=== PATIENT | male | born 1945 | race Caucasian/White ===

== ENCOUNTER 2016-12-18 20:05 | Emergency (ER) | payer MEDICARE ==
[~2016-12-18] VITALS: Ht 172.7 cm; Wt 120.0 kg
[2016-12-18 20:07] VITALS: BP 165/79; PULSE 75; RESP 16; TEMP 97.4; O2SAT 96
[2016-12-18] MEDS ORDERED: APIX5TAB PO (20:40)
[2016-12-18] MEDS ORDERED: ROSU10 PO (20:40)
[2016-12-18] MEDS ORDERED: PANT40TA3 PO (20:40)
[2016-12-18] MEDS ORDERED: LISI-515 PO (20:40)
[2016-12-18] MEDS ORDERED: ISOS20TA PO (20:40)
[2016-12-18] MEDS ORDERED: SPIR25TA PO (20:40)
--- NOTE | 2016-12-18 21:06 | PD ---
HPI Chief Complaint: ENT Complaint Time Seen by Provider: 21:02 Travel History International Travel<30 days: No Contact w/Intl Traveler<30days: No Traveled to known affect area: No History of Present Illness HPI 71-year-old white male presents to emergency department with complains of left ear pain. He states that he is [place] noticeable decreased hearing on the left ear, crackling and popping. He states that he has had pain in the ear itself. Some pain into left jaw and to his teeth as well. Patient 2 weeks ago had a skin cancer removed from the left side of his neck just behind his ear. He states that it seemed to be soon after this that he developed his symptoms. He is a been present now for one-1.5 weeks. He has had no cold symptoms. No runny nose , cough or congestion. No sore throat. He denies any ocular changes. No sensory changes on his tongue. No difficulty swallowing. No facial weakness or numbness. PFSH Past Medical History Cancer: Yes (skin) Cardiovascular Problems: Yes (CABGx2/STENTx2/ABLATION) Coronary Artery Disease: Yes Hypertension: Yes Tetanus Vaccination: < 5 Years Past Surgical History Cholecystectomy: Yes Coronary Artery Bypass Graft: Yes Coronary Stent: Yes Social History Alcohol Use: Yes (seldom) Tobacco Use: No Substance Use: No Allergies-Medications (Allergen,Severity, Reaction): Coded Allergies: No Known Allergies (Unverified , 12/18/16) Reported Meds & Prescriptions Reported Meds & Active Scripts Active Reported Eliquis (Apixaban) 5 Mg Tab 5 Mg PO BID Lisinopril 20 Mg Tab 20 Mg PO DAILY Spironolactone 25 Mg Tab 25 Mg PO DAILY Isosorbide Mononitrate 20 Mg Tab 60 Mg PO DAILY Take 2 doses 7 hours apart. Pantoprazole (Pantoprazole Sodium) 40 Mg Tab 40 Mg PO DAILY Crestor (Rosuvastatin Calcium) 10 Mg Tab 10 Mg PO DAILY Review of Systems Except as stated in HPI: all other systems reviewed are Neg General / Constitutional: No: Fever, Chills Eyes: No: Diploplia, Blurred Vision HENT: Positive: Earache, Other (decreased hearing in the left ear), No: Headaches, Vertigo, Lightheadedness, Sore Throat, Congestion, Neck Stiffness, Ear Discharge Cardiovascular: No: Chest Pain or Discomfort, Palpitations Respiratory: No: Cough, Shortness of Breath Gastrointestinal: No: Nausea, Vomiting Musculoskeletal: Positive: Pain Physical Exam Narrative GENERAL: Well-developed, well-nourished in no acute distress. Nontoxic appearing. HEAD: Normocephalic, atraumatic. EYES: Pupils equal round and reactive. Extraocular motions intact. No scleral icterus. No injection or drainage. ENT: Patient has a cerumen impaction in the left ear canal. The TM is not visualized. The right is clear. The right TM is clear. The patient complains of tenderness in front of the left ear as well as just below the earlobe. There is no erythema or warmth. Nose: clear . Posterior pharynx is pink and moist. No tonsillar edema or exudate. Uvula midline. Airway patent. NECK: Trachea midline.Supple, nontender, moves head freely. No central bony tenderness or spasm. Patient has a healing surgical scar on the left side of his neck. CARDIOVASCULAR: Regular rate and rhythm without murmurs, gallops, or rubs. RESPIRATORY: Clear to auscultation. Breath sounds equal bilaterally. No wheezes , rales, or rhonchi. GASTROINTESTINAL: Abdomen soft, non-tender, nondistended. No hepato-splenomegaly , or palpable masses. No guarding. EXTREMITIES: No clubbing, cyanosis, or edema. No joint tenderness, effusion, or edema noted. BACK: Nontender without deformity or crepitance. No flank tenderness. Neuro: Creelman nerves II through XII grossly intact. There is no facial droop. His tongue is midline. No facial weakness. Patient moves her extremities according fashion. Data Data Last Documented VS Vital Signs Date Time Temp Pulse Resp B/P Pulse Ox O2 Delivery O2 Flow Rate FiO2 12/18/16 20:07 97.4 75 16 165/79 96 Room Air MDM Medical Decision Making Medical Screen Exam Complete: Yes Emergency Medical Condition: Yes Medical Record Reviewed: Yes Differential Diagnosis Differential diagnosis: Otitis media, otitis externa, cerumen impaction, Torrez's palsy, shingles, postoperative infection Narrative Course Patient's left ears irrigated out by the nursing staff. The patient is here now is examined. The TM is clear. He has some mild erythema in the canal. There is some tenderness to the pinna. The patient's advised to monitor for any rash on the face or any facial weakness which might be associated with either Torrez's palsy or shingles. This is otitis externa. Diagnosis Primary Impression: Otitis externa Patient Instructions: General Instructions Additional Instructions: Rest. Cortisporin otic drops. Keflex Follow-up with your doctor in the next 2-3 days for recheck. Monitor for any facial weakness or drooping. Also monitor for any facial rashes at develop and be seen immediately if this occurs. Return to the ER for any problems. Med/Other Pt SpecificInfo: Prescription(s) given Disposition: 01 DISCHARGE HOME Condition: Stable Dany King Dec 18, 2016 21:06
[2016-12-18] MEDS ORDERED: CEPH-460 PO (21:54)
[2016-12-18] MEDS ORDERED: CORT1SOL LEFT EAR (21:54)
== END 2016-12-18 22:10 | disposition home or self-care (01) ==
LOC: NEPB 20:05
DX: H60.90 Unspecified otitis externa, unspecified ear (principal)
CPT/HCPCS: 99282